=== PATIENT | female | born 1975 | race Caucasian/White ===

== ENCOUNTER 2019-05-04 17:59 | Inpatient (IN) | payer OTHER ==
[~2019-05-04] VITALS: Ht 154.9 cm; Wt 55.2 kg
[2019-05-04] MEDS ORDERED: LEVO125 PO (18:17)
[2019-05-04] MEDS ORDERED: SODIUM CHLORIDE 0.9% 1,000 ML IV ONE (18:30)
[2019-05-04 18:59] LABS: BASOPHILS % (AUTO) 0.7 % (0.0-2.0); EOSINOPHILS % (AUTO) 0.4 % (1.0-6.0); HEMATOCRIT 37.4 % (36-46); HEMOGLOBIN 12.5 g/dL (12.0-16.0); LYMPHOCYTES % (AUTO) 13.2 % (22.0-44.0); MEAN CORPUSCULAR HEMOGLOBIN 26.1 pg (26.0-34.0); MEAN CORPUSCULAR HGB CONC 33.5 G/dL (31.0-37.0); MEAN CORPUSCULAR VOLUME 78 fL (80-100); MONOCYTES # (AUTO) 0.5 K/uL (0.1-1.0); MONOCYTES % (AUTO) 6.5 % (2.0-9.0); NEUTROPHILS # (AUTO) 6.1 K/uL (1.8-7.7); NEUTROPHILS % (AUTO) 79.2 % (40.0-70.0); PLATELET COUNT (AUTO) 330 K/uL (150-450); RED CELL DISTRIBUTION WIDTH 13.3 % (11.5-14.5)
[2019-05-04] MEDS ORDERED: ONDANSETRON HCL 4 MG/2 ML VIAL IVP ONE (19:00)
[2019-05-04] MEDS ORDERED: CloNIDine HCL 0.1 MG TABLET PO ONE (19:00)
[2019-05-04] MEDS ORDERED: CloNIDine HCL 0.2 MG TABLET PO ONE (19:00)
[2019-05-04] MEDS ORDERED: DEXTROSE 5%-0.45% SODIUM CHL 1,000 ML IV ONE (19:15)
[2019-05-04] MEDS ORDERED: MAGNESIUM HYDROXIDE SUSPENSION 30 ML UDCUP PO PRN (19:15)
[2019-05-04 19:16] LABS: ANION GAP 7 mmol/L (8-16); CALCIUM, TOTAL 9.1 mg/dL (8.8-10.5); CARBON DIOXIDE 27 mmol/L (22-29); CHLORIDE 101 mmol/L (98-107); CREATININE 0.58 mg/dL (0.60-1.30); GLOMERULAR FILTR. RATE CALC > 60 mL/min (>60); GLUCOSE,RANDOM 109 mg/dL (70-110); POTASSIUM 3.4 mmol/L (3.5-5.1); SODIUM SERUM 135 mmol/L (136-145); UREA NITROGEN, BLOOD 6 mg/dL (7-18)
[2019-05-04 19:21] LABS: ALANINE AMINOTRANSFERASE 7 U/L (12-78); ALBUMIN 2.8 g/dL (3.4-5.0); ALKALINE PHOSPHATASE 73 U/L (46-116); ASPARTATE AMINOTRANSFERASE 10 U/L (15-37); BILIRUBIN,TOTAL 0.2 mg/dL (0.1-1.0); TOTAL PROTEIN, SERUM 7.9 g/dL (6.4-8.2)
[2019-05-04 21:20] VITALS: BP 120/74
[2019-05-04] MEDS ORDERED: INFLUENZA VIRUS VACCINE QVS 2019-20 (3YR+)/PF 60 MCG/0.5 ML SYRINGE IM ONE (21:45)
[2019-05-04 23:30] VITALS: BP 128/68
[2019-05-05 04:00] VITALS: BP 118/72
[2019-05-05 07:37] VITALS: BP 128/71
[2019-05-05] MEDS: FAMOTIDINE 20 MG TABLET PO SCH (08:51)
[2019-05-05] MEDS: LORazepam 2 MG/ML VIAL IVP PRN ×4 (08:51→23:50)
[2019-05-05] MEDS ORDERED: POTASSIUM CHLORIDE 20 MEQ ER TABLET PO PRN (12:00)
[2019-05-05] MEDS ORDERED: LORazepam 2 MG/ML VIAL IVP PRN (12:00)
[2019-05-05] MEDS ORDERED: POTASSIUM CHL 10 MEQ/WATER 50 ML IV PRN (12:00)
[2019-05-05] MEDS ORDERED: LOPERAMIDE HCL 2 MG CAPSULE PO PRN (12:00)
[2019-05-05] MEDS: ONDANSETRON HCL 4 MG/2 ML VIAL IVP PRN ×2 (12:40→20:25)
[2019-05-05] MEDS: ACETAMINOPHEN 325 MG TABLET PO PRN (14:15)
[2019-05-05 15:50] VITALS: BP 129/87
[2019-05-05] MEDS: METOCLOPRAMIDE HCL 5 MG/ML 2 ML VIAL IVP PRN (16:46)
[2019-05-05 19:03] LABS: INFLUENZA TYPE A NEGATIVE FOR TYPE A (NEGATIVE); INFLUENZA TYPE B NEGATIVE FOR TYPE B (NEGATIVE)
[2019-05-05 20:11] VITALS: BP 106/58
[2019-05-05] MEDS: TEMAZEPAM 15 MG CAPSULE PO SCH (20:22)
[2019-05-05 21:27] VITALS: BP 158/79
[2019-05-05 23:59] VITALS: BP 122/82
[2019-05-06] MEDS: ACETAMINOPHEN 325 MG TABLET PO PRN ×2 (01:18→19:34)
[2019-05-06] MEDS: ACETAMINOPHEN/CODEINE 300-15 MG TABLET PO PRN (02:44)
[2019-05-06] MEDS: LORazepam 2 MG/ML VIAL IVP PRN ×4 (04:08→20:36)
[2019-05-06 04:10] VITALS: BP 134/89
[2019-05-06 04:56] LABS: AMPHET/METH SCREEN,URINE POSITIVE (NEGATIVE); BARBITURATE SCREEN, URINE NEGATIVE (NEGATIVE); BENZODIAZEPINES SCREEN,URINE NEGATIVE (NEGATIVE); CANNABINOID SCREEN,URINE NEGATIVE (NEGATIVE); COCAINE SCREEN,URINE NEGATIVE (NEGATIVE); METHADONE SCREEN, URINE NEGATIVE (NEGATIVE); OPIATE SCREEN,URINE NEGATIVE (NEGATIVE); PHENCYCLIDINE SCREEN,URINE NEGATIVE (NEGATIVE)
[2019-05-06] MEDS: DICYCLOMINE HCL 10 MG CAPSULE PO PRN (05:54)
[2019-05-06] MEDS: LEVOTHYROXINE SODIUM 125 MCG TABLET PO SCH (05:54)
[2019-05-06] MEDS: METOCLOPRAMIDE HCL 5 MG/ML 2 ML VIAL IVP PRN ×2 (07:18→18:00)
[2019-05-06 07:46] VITALS: BP 124/77
[2019-05-06] MEDS: FAMOTIDINE 20 MG TABLET PO SCH (07:54)
[2019-05-06 10:55] VITALS: BP 137/80
[2019-05-06] MEDS ORDERED: SODIUM CHLORIDE 0.9% 1,000 ML IV ONE (12:00)
[2019-05-06] MEDS: NICOTINE 21 MG/24 HOUR PATCH TD SCH (12:25)
[2019-05-06 15:35] VITALS: BP 134/108
[2019-05-06 20:27] VITALS: BP 119/80
[2019-05-06] MEDS: TEMAZEPAM 15 MG CAPSULE PO SCH (20:36)
[2019-05-07 00:36] VITALS: BP 121/58
[2019-05-07] MEDS: ACETAMINOPHEN/CODEINE 300-15 MG TABLET PO PRN ×2 (01:28→21:10)
[2019-05-07] MEDS: LORazepam 2 MG/ML VIAL IVP PRN ×4 (02:42→21:10)
[2019-05-07] MEDS: METOCLOPRAMIDE HCL 5 MG/ML 2 ML VIAL IVP PRN ×2 (02:48→17:22)
[2019-05-07 05:07] VITALS: BP 127/73
[2019-05-07] MEDS: LEVOTHYROXINE SODIUM 125 MCG TABLET PO SCH (06:18)
[2019-05-07] MEDS: NICOTINE 21 MG/24 HOUR PATCH TD SCH (08:04)
[2019-05-07] MEDS: FAMOTIDINE 20 MG TABLET PO SCH (08:04)
[2019-05-07 08:06] VITALS: BP 134/78
[2019-05-07] MEDS: ONDANSETRON HCL 4 MG/2 ML VIAL IVP PRN ×2 (10:47→21:18)
[2019-05-07 12:17] LABS: ANION GAP 10 mmol/L (8-16); CALCIUM, TOTAL 8.8 mg/dL (8.8-10.5); CARBON DIOXIDE 23 mmol/L (22-29); CHLORIDE 105 mmol/L (98-107); CREATININE 0.71 mg/dL (0.60-1.30); GLOMERULAR FILTR. RATE CALC > 60 mL/min (>60); GLUCOSE,RANDOM 89 mg/dL (70-110); PHOSPHORUS 3.5 mg/dL (2.5-4.9); POTASSIUM 4.3 mmol/L (3.5-5.1); SODIUM SERUM 138 mmol/L (136-145); UREA NITROGEN, BLOOD 6 mg/dL (7-18)
[2019-05-07 16:02] VITALS: BP 122/79
[2019-05-07] MEDS: ACETAMINOPHEN 325 MG TABLET PO PRN (17:24)
[2019-05-07 20:51] VITALS: BP 116/75
[2019-05-07] MEDS: TEMAZEPAM 15 MG CAPSULE PO SCH (21:09)
[2019-05-08 05:26] VITALS: BP 115/75
[2019-05-08] MEDS: LEVOTHYROXINE SODIUM 125 MCG TABLET PO SCH (07:13)
[2019-05-08 08:19] VITALS: BP 104/57
[2019-05-08] MEDS: NICOTINE 21 MG/24 HOUR PATCH TD SCH (08:21)
[2019-05-08] MEDS: LORazepam 2 MG/ML VIAL IVP PRN ×2 (08:21→17:08)
[2019-05-08] MEDS: FAMOTIDINE 20 MG TABLET PO SCH (08:21)
[2019-05-08] MEDS ORDERED: METOCLOPRAMIDE HCL 5 MG/ML 2 ML VIAL IVP SCH (11:00)
[2019-05-08] MEDS: DICYCLOMINE HCL 10 MG CAPSULE PO PRN (11:19)
[2019-05-08 15:43] VITALS: BP 118/58
[2019-05-08] MEDS: METOCLOPRAMIDE HCL 5 MG/ML 2 ML VIAL IVP SCH (20:00)
[2019-05-08] MEDS: TEMAZEPAM 15 MG CAPSULE PO SCH (20:27)
[2019-05-08] MEDS: ACETAMINOPHEN/CODEINE 300-15 MG TABLET PO PRN (20:27)
[2019-05-08] MEDS: ONDANSETRON HCL 4 MG/2 ML VIAL IVP PRN (20:27)
[2019-05-08 20:49] VITALS: BP 111/70
[2019-05-09] MEDS: LORazepam 2 MG/ML VIAL IVP PRN ×2 (00:54→10:23)
[2019-05-09] MEDS: METOCLOPRAMIDE HCL 5 MG/ML 2 ML VIAL IVP SCH ×3 (00:55→20:21)
[2019-05-09 05:29] VITALS: BP 128/74
[2019-05-09] MEDS: LEVOTHYROXINE SODIUM 125 MCG TABLET PO SCH (07:37)
[2019-05-09] MEDS: FAMOTIDINE 20 MG TABLET PO SCH (08:48)
[2019-05-09] MEDS: NICOTINE 21 MG/24 HOUR PATCH TD SCH (08:49)
[2019-05-09 08:53] VITALS: BP 116/62
[2019-05-09] MEDS ORDERED: HydrOXYzine HCL 25 MG TABLET PO PRN (13:45)
[2019-05-09 15:48] VITALS: BP 109/67
[2019-05-09 20:01] VITALS: BP 111/73
[2019-05-09] MEDS: ACETAMINOPHEN 325 MG TABLET PO PRN (20:21)
[2019-05-09] MEDS: TEMAZEPAM 15 MG CAPSULE PO SCH (20:21)
[2019-05-10] MEDS: ACETAMINOPHEN/CODEINE 300-15 MG TABLET PO PRN ×3 (01:33→19:47)
[2019-05-10] MEDS: METOCLOPRAMIDE HCL 5 MG/ML 2 ML VIAL IVP SCH ×3 (03:43→21:15)
[2019-05-10 04:16] VITALS: BP 111/61
[2019-05-10] MEDS: LEVOTHYROXINE SODIUM 125 MCG TABLET PO SCH (06:21)
[2019-05-10 08:38] VITALS: BP 109/74
[2019-05-10] MEDS: FAMOTIDINE 20 MG TABLET PO SCH (08:46)
[2019-05-10] MEDS: NICOTINE 21 MG/24 HOUR PATCH TD SCH (08:46)
[2019-05-10] MEDS ORDERED: HYD25 PO (10:06)
[2019-05-10] MEDS ORDERED: ONDA-104 PO (10:07)
[2019-05-10 15:49] VITALS: BP 101/63
[2019-05-10 20:09] VITALS: BP 107/73
[2019-05-10] MEDS: TEMAZEPAM 15 MG CAPSULE PO SCH (21:14)
[2019-05-11 04:00] VITALS: BP 103/65
[2019-05-11] MEDS: METOCLOPRAMIDE HCL 5 MG/ML 2 ML VIAL IVP SCH (04:14)
[2019-05-11] MEDS: LEVOTHYROXINE SODIUM 125 MCG TABLET PO SCH (05:37)
[2019-05-11] MEDS: ACETAMINOPHEN/CODEINE 300-15 MG TABLET PO PRN (05:37)
== END 2019-05-11 06:25 | DRG 897 ==
LOC: EMS 18:01 → 6S 19:13
PROVIDERS: ADMIT Internal Medicine; ATTEND Internal Medicine
DX: F11.23 Opioid dependence with withdrawal (principal); F17.210 Nicotine dependence, cigarettes, uncomplicated; E03.9 Hypothyroidism, unspecified; J06.9 Acute upper respiratory infection, unspecified; E87.6 Hypokalemia
CPT/HCPCS: 80307; 83735; 84100; 84132; 87804; G0480; J2060; J2405; J2765; J7030